=== PATIENT | male | born 1985 ===

== ENCOUNTER 2017-08-18 05:21 | Day surgery (SDC) | payer OTHER ==
[2017-08-18] VITALS (8 sets, daily range): BP systolic 131–151; BP diastolic 68–85
[~2017-08-18] VITALS: Ht 180.3 cm; Wt 137.0 kg
[~2017-08-18 05:21] MED LIST: KEPPRA XR750 MG ORAL
--- NOTE | 2017-08-18 06:55 | Pre-Procedure Note/Attestation ---
Pre-Procedure Note/Attestation Complete Prior to Procedure Planned Procedure: right Procedure Narrative: Right knee revision ACL reconstruction Indications for Procedure Pre-Operative Diagnosis: Right knee ACL failure Attestation I attest that I discussed the nature of the procedure; its benefits; risks and complications; and alternatives (and the risks and benefits of such alternatives ), prior to the procedure, with the patient (or the patient's legal advertising sales representative). I attest that, if there was a reasonable possibility of needing a blood transfusion, the patient (or the patient's legal advertising sales representative) was given the [facility] standardized written summary, pursuant to the Kishan Brimley Blood Safety Act ([place] Health and Safety Code # 1645, as amended). I attest that I re-evaluated the patient just prior to the surgery and that there has been no change in the patient's H&P, except as documented below: FILI JOHNSON Aug 18, 2017 06:55
[2017-08-18] MEDS ORDERED: Bupivacaine 0.25% Inj 30ml INJ ONE (06:59)
[2017-08-18] MEDS ORDERED: LR 1000ml ONE (07:00)
[2017-08-18] MEDS ORDERED: Dexamethasone 4mg/ml vial ONE (07:00)
[2017-08-18] MEDS ORDERED: Morphine Sulfate 10mg/ml Inj ONE (07:00)
[2017-08-18] MEDS ORDERED: NS Irrig 1000ml ONE (07:00)
[2017-08-18] MEDS ORDERED: Ropivacaine 5mg/ml Vial 30ml INJ ONE (07:00)
[2017-08-18] MEDS ORDERED: Glycopyrrolate 0.2mg/ml 1ml Vial ONE (07:00)
[2017-08-18] MEDS ORDERED: fentaNYL 100 mcg/2 mL IV ONE (07:00)
[2017-08-18] MEDS ORDERED: Ketorolac 30mg Inj ONE (07:00)
[2017-08-18] MEDS ORDERED: NS Irrig 4000ml IRRIG ONE (07:00)
[2017-08-18] MEDS ORDERED: D5 1/2NS 1,000 ML IV SCH (07:00)
[2017-08-18] MEDS ORDERED: Propofol 200mg/20ml IV ONE (07:00)
[2017-08-18] MEDS ORDERED: Metoclopramide 10mg/2ml Inj ONE (07:00)
[2017-08-18] MEDS ORDERED: EPINEPHrine 1mg/1ml Amp ONE (07:00)
[2017-08-18] MEDS ORDERED: LR 1000ml 1,000 ML IVLG SCH (08:14)
[2017-08-18] MEDS ORDERED: DiphenhydrAMINE 50mg/ml Inj IVP PRN (08:15)
[2017-08-18] MEDS ORDERED: Morphine Sulfate 2mg/ml Inj IVP PRN (08:15)
[2017-08-18] MEDS ORDERED: Labetalol 5mg/ml 20ml vial IV PRN (08:15)
[2017-08-18] MEDS ORDERED: Ketorolac 30mg Inj IV PRN (08:15)
[2017-08-18] MEDS ORDERED: fentaNYL 100 mcg/2 mL IV PRN (08:15)
[2017-08-18] MEDS ORDERED: Midazolam 2mg/2ml Inj IVP PRN (08:15)
--- NOTE | 2017-08-18 08:18 | Anethesia Preoperative Eval ---
Anesthesia Pre-op PMH/ROS General Date of Evaluation: Aug 18, 2017 Time of Evaluation: 07:00 Anesthesiologist: YULI ASA Score: ASA 2 Mallampati Score Class I : Soft palate, uvula, fauces, pillars visible Class II: Soft palate, uvula, fauces visible Class III: Soft palate, base of uvula visible Class IV: Only hard plate visible Mallampati Classification: Class II Surgeon: ELIZABETH Diagnosis: ACL TEAR Surgical Procedure: REVISION ACL RIGHT KNEE Anesthesia History: PONV Allergies: Coded Allergies: No Known Allergies (Unverified , 08/17/17) Medications: see eMAR Past Medical History PMH Narrative: TRAUMATIC BRAIN INJURY Anesthesia Pre-op Phys. Exam Physician Exam Last Vital Signs Date Time Temp Pulse Resp B/P (MAP) Pulse Ox O2 Delivery O2 Flow Rate FiO2 08/18/17 05:45 98.2 73 18 151/84 99 Room Air 98.2 Constitutional: NAD Neurologic: CN 2-12 intact Cardiovascular: RRR Respiratory: CTA Gastrointestinal: S/NT/ND Airway Exam Mallampati Score: Class II MO: full ROM: full Teeth: intact Anesthesia Pre-op A/P Risk Assessment & Plan Plan: GA AND FEMORAL NERVE BLOCK Pre-Antibiotics Drug: ANCEF Given Within 1 Hr of Incision: Yes Time Given: 07:30 Neil Ruvalcaba M.D. Aug 18, 2017 08:18
--- NOTE | 2017-08-18 08:21 | Immediate Post-Op Evaluation ---
Immediate Post-Op Evalulation Immediate Post-Op Evalulation Procedure: RIGHT ACL REVISION Date of Evaluation: Aug 18, 2017 Time of Evaluation: 10:00 IV Fluids: 1000 Blood Products: 0 Estimated Blood Loss: 0 Urinary Output: 0 Blood Pressure Systolic: 148 Blood Pressure Diastolic: 88 Pulse Rate: 74 Respiratory Rate: 16 O2 Sat by Pulse Oximetry: 99 Temperature (Fahrenheit): 98.6 Pain Score (1-10): 0 Nausea: No Vomiting: No Complications NONE Patient Status: awake, reacts, patent, extubated, none Hydration Status: adequate Drug: ANCEF Given Within 1 Hr of Incision: Yes Time Given: 07:30 Neil Ruvalcaba M.D. Aug 18, 2017 08:20
--- NOTE | 2017-08-18 08:22 | 48 Hour Post Anesthesia Eval ---
Post Anesthesia Evaluation Procedure: RIGHT ACL REVISION Date of Evaluation: Aug 20, 2017 Time of Evaluation: 09:00 Blood Pressure Systolic: 144 0: 81 Pulse Rate: 78 Respiratory Rate: 18 Temperature (Fahrenheit): 98.6 O2 Sat by Pulse Oximetry: 99 Airway: patent Nausea: No Vomiting: No Pain Intensity: 0 Hydration Status: adequate Mental Status/LOC: patient returned to baseline Post-Anesthesia Complications: NONE Follow-up care needed: ready to discharge Neil Ruvalcaba M.D. Aug 18, 2017 08:22
[2017-08-18] MEDS ORDERED: Acetaminophen (Non formulary) 100 ML IV ONE (09:00)
--- NOTE | 2017-08-18 10:22 | Brief Operative Note ---
Immediate Post Operative Note Operative Note Pre-op Diagnosis: Right knee ACL failure Procedure: Right knee arthroscopy with ACL revision reconstruction Post-op Diagnosis: Same Post-op Diagnosis: same as pre-op Findings: consistent w/pre-op dx studies Surgeon: Nicanor Anesthesia: general, regional, local Specimen: none Complications: none Condition: stable Fluids: 150 ml Estimated Blood Loss: minimal Drains: none Implant(s) used?: Yes FILI JOHNSON Aug 18, 2017 10:22
[2017-08-18] MEDS ORDERED: Norco 5mg/325mg tab ORAL PRN (11:45)
[2017-08-18] MEDS ORDERED: Tylenol #3 tab (300mg/30mg) ORAL PRN (11:45)
[2017-08-18] MEDS ORDERED: Norco 5mg/325mg tab ONE (11:59)
[2017-08-18] MEDS ORDERED: HYDROmorphone 1mg/ml Carpuject SUBQ PRN (15:00)
--- NOTE | 2017-08-18 20:00 | Operative Note - Dictated ---
DATE OF OPERATION: 08/18/2017 SURGEON: Neil Vick M.D. TWISTER FRAME TENDER: None. ANESTHESIA: General plus regional plus local. COMPLICATIONS: None. ANTIBIOTICS: Ancef. PREOPERATIVE DIAGNOSES: 1. Right knee ruptured allograft anterior cruciate ligament reconstruction. 2. Medial femoral condyle chondrosis. POSTOPERATIVE DIAGNOSES: 1. Right knee ruptured allograft anterior cruciate ligament reconstruction. 2. Medial femoral condyle chondrosis. PROCEDURE PERFORMED: Right knee arthroscopy with: 1. Arthroscopically assisted quadriceps autograft anterior cruciate ligament revision reconstruction using Viry interference screws in the femur and tibia measuring 8 x 25 and 10 x 25 respectively. 2. Medial femoral condyle chondroplasty. BACKGROUND: The patient sustained an ACL rupture and had reconstruction performed using allograft many years ago. He had a worker's compensation claim and re-rupture of the graft. All risks, benefits, and alternatives to revision ACL reconstruction were discussed in great detail. Risks included, but were not limited to, bleeding, infection, neurovascular injury, need for additional surgical intervention, failure of pain relief, arthrofibrosis, complications of anesthesia, blood clots, stroke, heart attack, and potentially . He understood these risks, amongst others, and consent was signed. PROCEDURE IN DETAIL: The patient was brought into the operating room and placed supine on the operating room table. The right lower extremity was correctly verified for surgical site and prepped and draped in standard sterile fashion. Examination under anesthesia revealed symmetric range of motion with contralateral side with 2+ pivot shift and 2+ Leticia compared to tracing and physiologic on the left. Attention was first turned to harvesting the quadriceps tendon graft. Using appropriate knee flexion and the patient positioning, an incision was created longitudinal with the quadriceps tendon proximal to the patella. The tendon was readily identified and a 10 mm wide by 10 mm depth graft was taken measuring 90 mm long. The donor site was then reapproximated using 0 Vicryl to reapproximate the donor site resection. After copious irrigation, more superficial tissues were closed using 0 and 2-0 Vicryl and 4-0 Monocryl in a subcuticular fashion. The graft was taken to the back table and prepared. Whipstitches were placed and it was found to pass through a 9.5 mm tunnel measure. The graft size was symmetric end to end. Attention was then turned to arthroscopy. Anterolateral and lateral anteromedial portals were marked and injected with 20 mL of 0.25% Marcaine with epinephrine. A diagnostic arthroscopy was then undertaken. It revealed the followin. Normal suprapatellar pouch. 2. Normal patellofemoral articulation. 3. Normal medial gutter. 4. Normal lateral gutter. 5. Normal lateral compartment. 6. Normal lateral meniscus. 7. Normal PCL. 8. Ruptured anterior cruciate ligament allograft from the femur. 9. Normal medial meniscus. 10. Diffuse grade 2 with small areas of grade 3 chondrosis medial femoral condyle. Using a radiofrequency device, the notch was cleared and the over the top positioning readily identified. The footprint on the tibia was cleared as well. Attention was then turned to the medial femoral condyle. Using a 3.5 mm shaver, the edge of the chondrosis were debrided to a smooth border and tested with a probe such that loose bodies would not form. There was no fully exposed eburnated bone visible through the chondrosis or after debridement. Attention was then turned back to the tibial tunnel. Using a tibial guide, a tunnel was created and impacted up to 10 mm wide and [id number] position was used to secure 2 mm posterior cortex on the femur and a pin was placed at the 10 o'clock position. The graft measuring 90 mm was divided into 3s and a 30 mm tunnel was created in the femur using an Bird-In-Hand drill. Radiography confirmed no tunnel embarrassment and full cancellous bone circumferentially both in the femur and in the tibia. All fluid and debris were evacuated from the new tunnels. Using an eccentric guide, a loom overhauler was used to create a small notch to accept the hardware in the femur. The Nitinol wire was placed along the bleathe pin. The graft was pulled into position under direct visualization and 3 cm was buried into the tunnel. An 8 mm wide interference screw Viry was secured in position with excellent fixation. It was tested and stable. Then, with appropriate tension, a tibial interference screw was secured into position. A second look arthroscopy revealed excellent positioning of the new reconstructed autograft ACL. There was excellent isometry and tension throughout a full range of motion. There was no impingement on the condyle or in the notch at full extension. All fluid and debris were evacuated from the knee. The wounds were copiously irrigated and reapproximated using 3-0 and 4-0 Monocryl in a subcuticular fashion. Steri-Strips were used over Mastisol. Dry sterile dressing was applied. A compressive wrap was secured. A knee immobilizer was placed. He tolerated the procedure well. There were no complications. I attest that I performed the entire operation. He was then transferred to recovery in good condition. Neil Vick M.D. DR: Gilbert JOB#: [id number] CC: ASHER
== END 2017-08-18 13:10 | disposition home or self-care (01) ==
LOC: SUR 05:21
DX: S83.511D Sprain of anterior cruciate ligament of right knee, subsequent encounter (principal); X58.XXXD Exposure to other specified factors, subsequent encounter; M24.10 Other articular cartilage disorders, unspecified site; Z83.3 Family history of diabetes mellitus; Z82.49 Family history of ischemic heart disease and other diseases of the circulatory system; G40.909 Epilepsy, unspecified, not intractable, without status epilepticus; E66.9 Obesity, unspecified; Z68.41 Body mass index [BMI] 40.0-44.9, adult; Z87.820 Personal history of traumatic brain injury
CPT/HCPCS: 29888; C1713; J0171; J0690; J1100; J1885; J2250; J2270; J2405; J2704; J2765; J2795; J3010; J3490; J7120; 94003; 94150